=== PATIENT | male | born 1960 | race Caucasian/White ===

== ENCOUNTER 2024-10-06 16:10 | Emergency (ER) | payer OTHER ==
[2024-10-06 17:03] VITALS: BP 155/75; PULSE 91; RESP 20; TEMP 98.2; BMI 26.4
[2024-10-06] MEDS ORDERED: ACETAMINOPHEN 500 MG TABLET (FP) ONE (17:29)
[2024-10-06] MEDS: ACETAMINOPHEN 500 MG TABLET (FP) PO ONE (17:32)
== END 2024-10-06 19:19 | disposition home or self-care (01) ==
LOC: JER 16:10
DX: S00.01XA Abrasion of scalp, initial encounter (principal); M25.512 Pain in left shoulder; W10.1XXA Fall (on)(from) sidewalk curb, initial encounter
CPT/HCPCS: 70450-TC; 72125-TC; 73030-TC-LT-FY; 99284-25